=== PATIENT | male | born 2000 ===

== ENCOUNTER 2022-08-03 14:20 | Emergency (ER) | payer SELFPAY ==
--- NOTE | 2022-08-03 15:59 | XRay Report ---
Right humerus 3 views INDICATION: History of fracture FINDINGS: There is a displaced fracture of the proximal right humerus involving humeral neck and into the proximal shaft. Large fracture fragment measures 3.7 cm with marked bony irregularity. The humer al head is slightly subluxed inferiorly within the glenohumeral joint however no definite dislocation . Signer Name: Daquan Samuels MD Signed: 08/03/2022 3:55 PM Workstation Name: [id number]
--- NOTE | 2022-08-03 16:03 | XRay Report ---
RIGHT ELBOW 2 VIEWS 1537 INDICATION: arm injury, report of closed displaced fracture of proximal humerus 6 days ago COMPARISON: None available. FINDINGS: Study was difficult due to the patient's condition and inability to extend at the elbow. Th e lateral view is significantly obliqued and the AP view is obtained in flexion and does not show the proximal radius and ulna well. This is a limited study. No obvious fracture or dislocation is seen. Signer Name: Tate Warner MD Signed: 08/03/2022 3:58 PM Workstation Name: [id number]
[2022-08-04] MEDS ORDERED: oxyCODONE /ACETAMINOPHEN 5-325MG TAB PO PRN (01:05)
[2022-08-04] MEDS ORDERED: ONDANSETRON 4 MG/2 ML INJ IM ONE (01:28)
[2022-08-04] MEDS ORDERED: MORPHINE 4 MG/1 ML INJ IM ONE (01:28)
--- NOTE | 2022-08-04 01:33 | Emergency Department Report ---
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 Patient presents status post right proximal humerus shaft fracture treated at [facility] 7 days ago advised to follow-up with orthopedics states he followed up with [facility] today and advised him to follow-up with At [facility] to schedule ORIF of right humerus. Patient was prescribed a sling and oxycodone as needed for pain. Patient presents for night for pain and requesting referral to orthopedics for surgical repair of humerus fracture. There is no abrasion laceration or bleeding. Patient states pain is 7/10 exacerbated by movement and palpation. There is been no new fall injury or trauma. Patient has sling as provided by [facility] emergency department, and demonstrates safe use of same. ED Review of Systems ROS: Stated complaint: BROKEN ARM Other details as noted in HPI Constitutional: denies: chills, fever Eyes: denies: eye pain, eye discharge, vision change ENT: denies: ear pain, throat pain Respiratory: denies: cough, shortness of breath, wheezing Cardiovascular: denies: chest pain, palpitations Endocrine: no symptoms reported Gastrointestinal: denies: abdominal pain, nausea, diarrhea Genitourinary: denies: urgency, dysuria Musculoskeletal: other (Right shoulder and upper arm pain) Skin: denies: rash, lesions Neurological: denies: headache, weakness, paresthesias Psychiatric: denies: anxiety, depression Hematological/Lymphatic: denies: easy bleeding, easy bruising ED Past Medical Hx - Past Medical History Previous Medical History?: No - Surgical History Past Surgical History?: No Upper Extremity Exam - Exam General: Vital signs noted. No distress. Alert and acting appropriately. Head and Torso: No HEENT Abnormality, No Neck Tenderness, No Chest/Lungs Abnormality, No Abdominal Tenderness, No Back Tenderness Shoulder Exam: Yes Shoulder Tenderness (Right lateral), Yes AC Joint Tenderness (To deep palpation), No Clavicle Tenderness, No Normal Range of Motion in Shoulder (Movement restricted by pain), No Shoulder Deformity Arm Exam: Yes Arm/Humerus Tenderness (Right humerus tenderness proximal with swelling no ecchymosis no abrasion laceration or bleeding), No Arm Deformity Elbow: Yes Normal Range of Motion in Elbow, No Elbow Tenderness, No Elbow Deformity Forearm: Yes Pain with Pronation, Yes Pain with Supination, No Forearm Tenderness, No Forearm Deformity Wrist: Yes Normal ROM in Wrist, No Wrist Tenderness, No Wrist Deformity, No Snuffbox Tenderness, No Pain with Axial Thumb Compression Hand: Yes Normal ROM in Digit(s), No Hand Tenderness, No Hand Deformity, No Digit Tenderness, No Digit(s) Deformity, No Tendon Dysfunction CMS Exam: Yes Normal Distal Pulses, Yes Normal Capillary Refill, Yes Normal Distal Sensation, No Broken Skin ED Course Vital Signs 08/03/22 15:12 Temperature 99.1 F Pulse Rate 103 H Respiratory 18 Rate Blood Pressure 121/66 [Left] O2 Sat by Pulse 99 Oximetry ED Medical Decision Making - Radiology Data Radiology results: report reviewed, image reviewed Right humerus 3 views INDICATION: History of fracture FINDINGS: There is a displaced fracture of the proximal right humerus involving humeral neck and into the proximal shaft. Large fracture fragment measures 3.7 cm with marked bony irregularity. The humeral head is slightly subluxed inferiorly within the glenohumeral joint however no definite dislocation. Signer Name: Daquan Samuels MD Signed: 08/03/2022 3:55 PM Workstation Name: [id number] Transcribed By: CW Dictated By: SEAN SAMUELS MD Electronically Authenticated By: SEAN SAMUELS MD Signed Date/Time: 08/03/22 1555 DD/ 1554 TD/TT: RIGHT ELBOW 2 VIEWS 1537 INDICATION: arm injury, report of closed displaced fracture of proximal humerus 6 days ago COMPARISON: None available. FINDINGS: Study was difficult due to the patient's condition and inability to extend at the elbow. The lateral view is significantly obliqued and the AP view is obtained in flexion and does not show the proximal radius and ulna well. This is a limited study. No obvious fracture or dislocation is seen. Signer Name: Tate Warner MD Signed: 08/03/2022 3:58 PM Workstation Name: [id number] Transcribed By: GJ Dictated By: Tate Warner MD Electronically Authenticated By: Tate Warner MD Signed Date/Time: 08/03/221557 DD/ 56 TD/TT: - Medical Decision Making X rays consistent with previous findings at [facility] isplaced fracture of the proximal right humerus involving humeral neck and into the proximal shaft. Large fracture fragment measures 3.7 cm with marked bony irregularity. The humeral head is slightly subluxed inferiorly within the glenohumeral joint however no definite dislocation. Distal pulses remain intact HERD TESTER less than 3 seconds bilateral pain is improved with medications given in ED plan DC to home, follow- up with orthopedics in a.m. for definitive treatment. Patient and mother verbalized agreement and understanding with same. [employer] service was used for this case. Injury is now 8 days old. Patient has been initially evaluated at [facility] and today at [facility] patient was referred to [facility] for Ortho follow-up which brought patient to the emergency department. Patient given referral to Dr. Hardin orthopedics. Will call in a.m. to set up appointment.. Critical care attestation.: If time is entered above; I have spent that time in minutes in the direct care of this critically ill patient, excluding procedure time. ED Disposition Clinical Impression: Closed fracture of proximal end of humerus Qualifiers: Encounter type: initial encounter Fracture morphology: other fracture Fracture alignment: displaced Laterality: right Qualified Code(s): S42.291A - Other displaced fracture of upper end of right humerus, initial encounter for closed fracture Disposition: 01 HOME / SELF CARE / HOMELESS Is pt being admited?: No Does the pt Need Aspirin: No Condition: Stable Instructions: Humerus Fracture Treated With Immobilization, [id number] Additional Instructions: Take medications as prescribed,, take 2 oxycodone tablets every 6 hours as needed for pain. Take ibuprofen every 8 hours as needed for pain. Call Dr. Hardin in the morning to set up appointment. Return to emergency department should symptoms worsen. Referrals: CAROL HARDIN MD [Staff Physician] - [facility] (Call Dr. Hardin in the morning to set up an appointment for repair of broken humerus.) Time of Disposition: 01:41
[2022-08-04 02:12] VITALS: BP 127/67
== END 2022-08-04 10:03 | disposition home or self-care (01) ==
LOC: ED 14:20
DX: S42.201A Unspecified fracture of upper end of right humerus, initial encounter for closed fracture (principal); X58.XXXA Exposure to other specified factors, initial encounter; Y93.89 Activity, other specified; Y92.89 Other specified places as the place of occurrence of the external cause; Y99.8 Other external cause status
CPT/HCPCS: 73060; 73070; 96372; 99283; J2270; J2405